=== PATIENT | female | born 1995 | race Caucasian/White ===

== ENCOUNTER → 2022-10-17 11:34 | Outpatient (CLI) | payer MEDICAID, SELFPAY ==
[2022-10-17 13:31] LABS: Free Thyroxine Index 2.9 ug/dL (5.93-13.13); T4 (Thyroxine) 8.2 ug/dl (5.53-11.0); Triiodothryronine (T3) Uptake 35 % (23.5-40.5)
[2022-10-17 13:45] LABS: Thyroid Stimulating Hormone 2.59 uIU/mL (0.465-4.68)
[2022-10-18 10:17] LABS: FSH 4.7 mIU/mL (.); LH 11.7 mIU/mL (.); Testosterone,Total 27 ng/dL (13-71)
== END ==
PROVIDERS: PCP Nurse Practitioner Family; Visit Provider Obstetrics & Gynecology
DX: Z01.419 Encounter for gynecological examination (general) (routine) without abnormal findings (principal); N92.6 Irregular menstruation, unspecified
CPT/HCPCS: 36415; 82670; 83001; 83002; 84403; 84436; 84443; 84479